=== PATIENT | male | born 1960 | race Caucasian/White ===

== ENCOUNTER 2018-05-12 13:10 | Emergency (ER) | payer OTHER ==
[2018-05-12] MEDS ORDERED: TETANUS & DIPHTHERIA TOX,ADULT 0.5 ML VIAL ONE (13:48)
[2018-05-12] MEDS ORDERED: DOXYCYCLINE 100 MG CAP PO ONE (13:48)
[2018-05-12] MEDS ORDERED: LIDOCAINE 1% MPF 5 ML VIAL ONE (13:48)
[2018-05-12] MEDS ORDERED: DIAZEPAM 5 MG TABLET ONE (13:48)
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
--- NOTE | 2018-05-12 14:16 | EDPHYS ---
Physician Documentation [facility] Name: Dariusz Delgado Age: 58 yrs Sex: Male : 1960 Arrival Date: 05/12/2018 Time: 13:11 Bed 23 Private MD: ED Physician Alfonso Escalante HPI: 05/12 13:48 This 58 yrs old Male presents to ER via Ambulatory with complaints of Foreign snw Body - Fish Hook in R Cheek. 13:48 The patient or guardian reports the patient has a suspected foreign body, face. The snw reported likely foreign body is a fishhook. Onset: The symptoms/episode began/occurred suddenly. Treatment Prior to Arrival: none. The patient has not experienced similar symptoms in the past. It is unknown whether or not the patient has recently seen a physician. Historical: - Allergies: : No Known Allergies; aj1 - Home Meds: 13: atorvastatin 40 mg oral tab 1 tab once daily [Active]; losartan 50 mg oral tab 1 tab in aj1 the morning [Active]; losartan 50 mg oral tab 1 tab at night [Active]; metoprolol succinate 50 mg oral Tb24 1 tab once daily [Active]; aspirin 81 mg Oral chew 1 tab once daily [Active]; Vitamin D Oral 1,000 unit daily [Active]; tamsulosin 0.4 mg oral cp24 1 cap once daily [Active]; finsteride 5 mg daily [Active]; pantoprazole 40 mg oral TbEC 1 tab once daily [Active]; dicyclomine 20 mg Oral tab 1 tab as needed [Active]; bupropion HCl 300 mg Oral Tb24 1 tab once daily [Active]; alprazolam 0.25 mg Oral tab 1 tab as needed [Active]; meloxicam 7.5 mg oral tab 1 tab once daily [Active]; cyclobenzaprine 5 mg Oral tab 1 tab as needed [Active]; - PMHx: 13:27 Hypertension; GERD; Anxiety; Depression; Hyperlipidemia; Back pain; Kidney stones; aj1 - PSHx: 13:27 back surgery x7; Cholecystectomy; aj1 - Immunization history:: Flu vaccine is up to date. - Social history:: Smoking status: Patient uses tobacco products, denies chronic smoking, but will smoke occasionally. - Ebola Screening: : Patient denies travel to an Ebola-affected area in the 21 days before illness onset. ROS: 13:48 Constitutional: Negative for fever, chills, and weight loss, Eyes: Negative for injury, snw pain, redness, and discharge, ENT: Negative for injury, pain, and discharge, Neck: Negative for injury, pain, and swelling, Cardiovascular: Negative for chest pain, palpitations, and edema, Respiratory: Negative for shortness of breath, cough, wheezing, and pleuritic chest pain, Abdomen/GI: Negative for abdominal pain, nausea, vomiting, diarrhea, and constipation, Back: Negative for injury and pain, : Negative for injury, bleeding, discharge, and swelling, MS/Extremity: Negative for injury and deformity, Neuro: Negative for headache, weakness, numbness, tingling, and seizure. 13:48 Skin: Positive for fishhook in cheek. 13:48 Psych: Positive for anxious. Exam: 13:40 Constitutional: This is a well developed, well nourished patient who is awake, alert, snw and in no acute distress. Head/Face: Normocephalic, atraumatic. ENT: Nares patent. No nasal discharge, no septal abnormalities noted. Tympanic membranes are normal and external auditory canals are clear. Oropharynx with no redness, swelling, or masses, exudates, or evidence of obstruction, uvula midline. Mucous membranes moist. Neck: Trachea midline, no thyromegaly or masses palpated, and no cervical lymphadenopathy. Supple, full range of motion without nuchal rigidity, or vertebral point tenderness. No Meningismus. Chest/axilla: Normal chest wall appearance and motion. Nontender with no deformity. No lesions are appreciated. Cardiovascular: Regular rate and rhythm with a normal S1 and S2. No gallops, murmurs, or rubs. Normal PMI, no JVD. No pulse deficits. Respiratory: Lungs have equal breath sounds bilaterally, clear to auscultation and percussion. No rales, rhonchi or wheezes noted. No increased work of breathing, no retractions or nasal flaring. Abdomen/GI: Soft, non-tender, with normal bowel sounds. No distension or tympany. No guarding or rebound. No evidence of tenderness throughout. Back: No spinal tenderness. No costovertebral tenderness. Full range of motion. Skin: Warm, dry with normal turgor. Normal color with no rashes, no lesions, and no evidence of cellulitis. MS/ Extremity: Pulses equal, no cyanosis. Neurovascular intact. Full, normal range of motion. Neuro: Awake and alert, GCS 15, oriented to person, place, time, and situation. Cranial nerves II-XII grossly intact. Motor strength 5/5 in all extremities. Sensory grossly intact. Cerebellar exam normal. Normal gait. Psych: Awake, alert, with orientation to person, place and time. Behavior, mood, and affect are within normal limits. 13:40 Head/face: Noted is puncture wound with foreign body to right distal lateral cheek, no bleeding. Vital Signs: 13:27 BP 130 / 83; Pulse 89; Resp 18; Temp 97.3(TE); Pulse Ox 98% on R/A; Weight 76.2 kg (R); aj1 Height 5 ft. 8 in. (172.72 cm); Pain 4/10; 14:28 BP 132 / 92; Pulse 78; Resp 16; Pulse Ox 97% on R/A; mb3 13:27 Body Mass Index 25.54 (76.20 kg, 172.72 cm) aj1 Procedures: 14:20 Foreign Body Removal: a fishhook, from the right right cheek, by needle, The patient snw tolerated the removal well. MDM: 13:32 Patient medically screened. snw 14:21 Data reviewed: vital signs, nurses notes. Data interpreted: Pulse oximetry: on room air snw is 98 %. Interpretation: normal. Counseling: I had a detailed discussion with the patient and/or guardian regarding: the historical points, exam findings, and any diagnostic results supporting the discharge/admit diagnosis, the presence of at least one elevated blood pressure reading (>120/80) during this emergency department visit, the need for outpatient follow up, for definitive care, to return to the emergency department if symptoms worsen or persist or if there are any questions or concerns that arise at home. Special discussion: I have referred the patient to see his PCP for further evaluation of high blood pressure. Based on the history and exam findings, there is no indication for further emergent testing or inpatient evaluation. I discussed with the patient/guardian the need to see the primary care provider for further evaluation of the symptoms. 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 Exp: mb3 07/05/2020. Lot #: [id number]. } Route: IM; Site: right deltoid; 14:25 Follow up: Response: No adverse reaction mb3 14:06 Drug: Lidocaine (1 %) 1 vials Volume: 20 ml; Route: Infiltration; mb3 14:25 Follow up: Response: No adverse reaction mb3 Disposition: 05/12/18 14:16 Discharged to Home. Impression: Puncture wound with foreign body of right cheek and temporomandibular area. - Condition is Stable. - Discharge Instructions: Puncture Wound, VIS, Tetanus, Diphtheria (Td) - CDC, Foreign Body. - Prescriptions for Doxycycline Hyclate 100 mg Oral Tablet - take 1 tablet by ORAL route once daily; 10 tablet. Diclofenac Sodium 75 mg Oral Tablet Sustained Release - take 1 tablet by ORAL route 2 times per day; 30 tablet. - Work release form, Medication Reconciliation Form, Thank You Letter, Antibiotic Education, Prescription Opioid Use form. - Follow up: Private Physician; When: 2 - 3 days; Reason: Recheck today's complaints, Continuance of care, Re-evaluation by your physician. Follow up: Emergency Department; When: As needed; Reason: Worsening of condition. - Notes: Happy Birthday to the Grandson Addendum: 05/15/2018 10:08 Co-signature as Attending Physician, Alfonso Escalante MD I agree with the assessment and c mays plan of care. PA/COUNTY COMMISSIONER's history reviewed, patient interviewed, and examined. Signatures: Emy Pillai RN RN aj1 Alfonso Escalante MD MD cha Therrien, Shelly, SOCIAL WORKER ASSISTANT-C SOCIAL WORKER ASSISTANT-Csnw Femi Jules, RN RN mb3 Corrections: (The following items were deleted from the chart) 05/12 14:31 14:16 05/12/2018 14:16 Discharged to Home. Impression: Puncture wound with foreign body mb3 of right cheek and temporomandibular area. Condition is Stable. Forms are Medication Reconciliation Form, Thank You Letter, Antibiotic Education, Prescription Opioid Use. Follow up: Private Physician; When: 2 - 3 days; Reason: Recheck today's complaints, Continuance of care, Re-evaluation by your physician. Follow up: Emergency Department; When: As needed; Reason: Worsening of condition. snw
== END 2018-05-12 14:31 | disposition home or self-care (01) ==
LOC: ER 13:10
PROC: 0JC13ZZ Extirpation of Matter from Face Subcutaneous Tissue and Fascia, Percutaneous Approach (ICD-10-PCS; principal; 2018-05-12)
DX: S01.441A Puncture wound with foreign body of right cheek and temporomandibular area, initial encounter (principal); X58.XXXA Exposure to other specified factors, initial encounter; Y93.89 Activity, other specified; Y92.814 Boat as the place of occurrence of the external cause; I10 Essential (primary) hypertension; E78.5 Hyperlipidemia, unspecified; K21.9 Gastro-esophageal reflux disease without esophagitis; Z72.0 Tobacco use
CPT/HCPCS: 90714; 99283